=== PATIENT | female | born 1955 | race Caucasian/White ===

== ENCOUNTER 2021-05-22 12:29 | Emergency (ER) | payer OTHER ==
[~2021-05-22] VITALS: Ht 172.7 cm; Wt 57.0 kg
[2021-05-22] MEDS ORDERED: ACETAMINOPHEN 325MG TABLET PO STA (13:00)
[2021-05-22] MEDS ORDERED: SODIUM CHLORIDE 0.9% 1,000 ML IV ONE (13:00)
[2021-05-22 14:21] LABS: BASOPHILS % 0.7 % (0.0-2.0); EOSINOPHILS % 1.5 % (0.0-5.0); HEMATOCRIT. 37.7 % (36.0-48.0); HEMOGLOBIN. 12.8 g/dL (12.0-16.0); LYMPHOCYTES % 32.6 % (20.0-50.0); MEAN CORPUSCULAR HEMOGLOBIN 27.7 pg (28.0-32.0); MEAN CORPUSCULAR VOLUME 81.3 fL (81.0-99.0); MEAN PLATELET VOLUME 8.2 fl (7.4-10.4); MONOCYTES % 8.8 % (2.0-8.0); NEUTROPHILS % 56.4 % (40.0-76.0); PLATELET 260 x1000/uL (130-400); RED BLOOD CELL COUNT 4.63 mill/uL (4.2-5.4); RED CELL DISTRIBUTION WIDTH 14.3 % (11.6-14.6)
[2021-05-22 14:27] LABS: CHLORIDE 104 mEq/L (98-107)
[2021-05-22 19:42] VITALS: BP 158/68
== END 2021-05-22 19:33 | disposition home or self-care (01) ==
LOC: ER 13:24
DX: R19.7 Diarrhea, unspecified (principal); R10.32 Left lower quadrant pain
CPT/HCPCS: 36415; 74176; 80053; 81025; 85025; 99284; J7030; Z7610

== ENCOUNTER 2025-01-14 03:22 | Emergency (ER) | payer MEDICAID, OTHER ==
[~2025-01-14] VITALS: Ht 167.6 cm; Wt 70.0 kg
[2025-01-14 03:39] VITALS: O2SAT 100
[2025-01-14 05:22] LABS: BASOPHILS % 0.8 % (0.0-2.0); EOSINOPHILS % 2.6 % (0.0-5.0); HEMATOCRIT. 33.2 % (36.0-48.0); HEMOGLOBIN. 10.8 g/dL (12.0-16.0); LYMPHOCYTES % 36.9 % (20.0-50.0); MEAN CORPUSCULAR HEMOGLOBIN 27.5 pg (28.0-32.0); MEAN CORPUSCULAR HGB CONC 32.6 g/dL (31.0-37.0); MEAN CORPUSCULAR VOLUME 84.4 fL (81.0-99.0); MEAN PLATELET VOLUME 8.1 fl (7.4-10.4); MONOCYTES % 8.8 % (2.0-8.0); NEUTROPHILS % 50.9 % (40.0-76.0); PLATELET 229 x1000/uL (130-400); RED BLOOD CELL COUNT 3.94 mill/uL (4.2-5.4); RED CELL DISTRIBUTION WIDTH 14.7 % (11.6-14.6); WHITE BLOOD COUNT 6.9 x1000/uL (4.5-11.0)
[2025-01-14 05:29] LABS: CLARITY URINE CLOUDY (CLEAR); COLOR URINE YELLOW (YELLOW); GLUCOSE URINE NEGATIVE (NEGATIVE); KETONES URINE NEGATIVE (NEGATIVE); LEUKOCYTE ESTERASE URINE 3+ (NEGATIVE); NITRITE URINE NEGATIVE (NEGATIVE); OCCULT BLOOD URINE TRACE (NEGATIVE); PROTEIN URINE NEGATIVE (NEGATIVE); SPECIFIC GRAVITY URINE 1.008 (1.005-1.030); UROBILINOGEN URINE 0.2 E.U./dL (0.2-1.0)
[2025-01-14 05:44] LABS: CHLORIDE 109 mEq/L (98-107); POTASSIUM 3.9 mEq/L (3.5-5.1); SODIUM 142 mEq/L (136-145)
[2025-01-14 05:45] LABS: CALCIUM 9.6 mg/dL (8.7-10.4); CARBON DIOXIDE 25 mEq/L (21-32)
[2025-01-14 05:48] LABS: *AMPHETAMINES SCREEN URINE NEGATIVE (NEGATIVE); *BARBITURATES SCREEN URINE NEGATIVE (NEGATIVE); *BENZODIAZEPINES SCREEN URINE NEGATIVE (NEGATIVE); *COCAINE SCREEN URINE NEGATIVE (NEGATIVE); CANNABINOID URINE SCREEN NEGATIVE (NEGATIVE); METHADONE URINE SCREEN NEGATIVE (NEGATIVE); OPIATES URINE SCREEN NEGATIVE (NEGATIVE); PHENCYCLIDINE URINE SCREEN NEGATIVE (NEGATIVE)
[2025-01-14 05:49] LABS: ECSTASY MDMA SCREEN URINE NEGATIVE (NEGATIVE)
[2025-01-14 05:50] LABS: CREATININE 1.1 mg/dL (0.6-1.0); GLUCOSE 91 mg/dL (70-105); TROPONIN I HIGH SENSITIVITY 4 ng/L (3.0-34); UREA NITROGEN BLOOD 16 mg/dL (9-23)
[2025-01-14 05:52] LABS: ALANINE AMINOTRANSFERASE 18 IU/L (10-49); ALBUMIN 4.4 g/dL (3.2-4.8); ASPARTATE AMINOTRANSFERASE 37 IU/L (<34); BILIRUBIN DIRECT 0.1 mg/dL (<=3.0); BILIRUBIN TOTAL 0.4 mg/dL (0.1-1.0); PROTEIN TOTAL 7.8 g/dL (6.0-8.3)
[2025-01-14 06:07] LABS: ETHANOL BLOOD < 10 mg/dL (<10)
[2025-01-14 06:18] LABS: SQUAMOUS EPITHELIAL CELL URINE 2+ /lpf (RARE/1+); WBC URINE 50-100 /hpf (0-2)
[2025-01-14 06:19] LABS: BACTERIA URINE 2+
[2025-01-14] MEDS: NITROFURANTOIN 100MG M/M CAPSULE PO NR (08:37)
[2025-01-14] MEDS: CLONIDINE 0.1MG TABLET PO ONE (16:00)
[2025-01-14] MEDS: HYDROCODONE/ACETAMINOPHEN 5/325MG TABLET PO ONE (17:18)
[2025-01-14] MEDS: DIAZEPAM 5 MG TABLET PO ONE (17:31)
[2025-01-14] MEDS: NITROFURANTOIN 100MG M/M CAPSULE PO SCH (21:06)
[2025-01-14] MEDS: ZIPRASIDONE MESYLATE 20MG/VIAL IM ONE (21:06)
[2025-01-15] MEDS: HYDRALAZINE HCL 10MG TABLET PO ONE (03:15)
[2025-01-15] MEDS: HYDRALAZINE 20MG/ML VIAL IV ONE (03:30)
[2025-01-15 04:00] VITALS: BP 148/76; PULSE 75; RESP 16; TEMP 36.8; O2SAT 100
== END 2025-01-15 04:00 ==
LOC: ER 03:22
DX: F43.0 Acute stress reaction (principal); T76.91XA Unspecified adult maltreatment, suspected, initial encounter; R41.89 Other symptoms and signs involving cognitive functions and awareness; Z20.822 Contact with and (suspected) exposure to COVID-19; Z79.899 Other long term (current) drug therapy; Z65.3 Problems related to other legal circumstances; Z91.040 Latex allergy status; Y92.89 Other specified places as the place of occurrence of the external cause
CPT/HCPCS: 80076; 80305; 80048; 81003; 80320; 83880; 85025; 87086; 84484; 36415; 71045; 70450; 93005; 96372; 99285; 87426; 96374; J3486; J0360; G0480

== ENCOUNTER 2025-07-03 11:22 | Emergency (ER) | payer BC, MEDICAID ==
[~2025-07-03] VITALS: Ht 167.6 cm; Wt 64.0 kg
[2025-07-03 11:29] VITALS: O2SAT 99
[2025-07-03] MEDS: ACETAMINOPHEN 500MG TABLET PO ONE (12:40)
[2025-07-03] MEDS ORDERED: IBUP-1455 MT (14:05)
[2025-07-03 15:00] VITALS: BP 151/76; PULSE 81; RESP 14; TEMP 36.9; O2SAT 98
== END 2025-07-03 15:09 | disposition home or self-care (01) ==
LOC: ER 11:22
DX: S00.81XA Abrasion of other part of head, initial encounter (principal); Z91.040 Latex allergy status; W01.0XXA Fall on same level from slipping, tripping and stumbling without subsequent striking against object, initial encounter; Y93.01 Activity, walking, marching and hiking; Y92.89 Other specified places as the place of occurrence of the external cause; Y99.8 Other external cause status
CPT/HCPCS: 99284